=== PATIENT | male | born 2005 | race Caucasian/White ===

== ENCOUNTER 2024-12-11 20:24 | Emergency (ER) | payer SELFPAY ==
[~2024-12-11] VITALS: Ht 165.1 cm; Wt 56.7 kg
[2024-12-11] MEDS ORDERED: methylPREDNISolone sod succ 125 MG VIAL IM ONE (21:00)
[2024-12-11] MEDS ORDERED: Ketorolac Tromethamine 30 MG/ML VIAL IM ONE (21:00)
[2024-12-11] MEDS ORDERED: PREDNISONE50 MG PO (21:51)
[2024-12-11] MEDS ORDERED: CYCLOBENZAPRINE5 M3 PO (21:51)
== END 2024-12-11 21:54 | disposition home or self-care (01) ==
LOC: ED 20:24
DX: S39.012A Strain of muscle, fascia and tendon of lower back, initial encounter (principal); R20.0 Anesthesia of skin; X50.0XXA Overexertion from strenuous movement or load, initial encounter; Y93.89 Activity, other specified; Y92.89 Other specified places as the place of occurrence of the external cause; Y99.8 Other external cause status